=== PATIENT | female | born 1930 | race Caucasian/White ===

== ENCOUNTER 2018-06-13 09:08 | Emergency (ER) | payer MEDICARE ==
--- NOTE | 2018-06-13 10:11 | CT ---
CT BRAIN WITHOUT CONTRAST: Comparison: None. History: Hypertension with central tremors. Found on the ground 40 minutes prior to arrival. Fall wit h head trauma. Technique: Multiple contiguous axial images were obtained in a CT of the brain without contrast. FINDINGS: There are scattered hypodensities in the subcortical and periventricular white matter, likely seconda ry to small vessel ischemic disease. No large confluent infarction is seen. There is no evidence of h ydrocephalus, intracranial hemorrhage, or extraaxial fluid collection. The calvarium and overlying soft tissues are unremarkable. There is opacification of the right fronta l and maxillary sinuses as well as some of the ethmoid air cells. IMPRESSION: 1. No evidence of acute intracranial abnormality. 2. Moderate sinus disease. POS: [facility]
--- NOTE | 2018-06-13 10:28 | RAD ---
AP PELVIS: Indication: Found down on ground with right hip pain. FINDINGS: There is a hip screw and slide plate fixating a healed right hip fracture. There is diffuse osteopeni a. No definite acute fracture is evident. IMPRESSION: No definite acute osseous abnormality. POS: [facility]
--- NOTE | 2018-06-13 10:32 | RAD ---
RIGHT HIP 2 VIEWS: Date: 06/13/18 HISTORY: Patient in assisted living, found down with right hip pain. COMPARISON: None. FINDINGS: There is a hip screw and side plate in place, fixating a healed right hip fracture. 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 There is diffuse osteopenia. No definite acute osseous abno rmality is evident. IMPRESSION: No definite acute osseous abnormality. Diffuse osteopenia. POS: [facility]
[2018-06-13 11:08] LABS: #Basophils 0.1 thou/uL (0.0-0.2); #Eosinphils 0.2 thou/uL (0.0-0.7); #Lymphocytes 1.2 thou/uL (1.20-3.40); #Monocytes 1.1 thou/uL (0.11-0.59); #Neutrophils 10.2 thou/uL (1.40-6.50); %Basophils 0.9 % (0.0-1.0); %Eosinophils 1.6 % (0.0-10.0); %Lymphocytes 9.2 % (21.0-51.0); %Monocytes 8.6 % (0.0-10.0); %Neutrophils 79.6 % (42.0-75.0); Mean Corpuscular HGB CONC 32.6 g/dL (32.0-36.0); Mean Corpuscular Hemoglobin 30.5 pg (27.0-31.0); Mean Corpuscular Volume 93.5 fL (78.0-98.0); Mean Platelet Volume 8.1 fL (7.4-10.4); Platelet Count 198 thou/uL (130-400); RBC Distribution Width 13.7 % (11.5-14.5); White Blood Cell (WBC) Count 12.8 thou/uL (4.8-10.8)
[2018-06-13 11:30] LABS: ALT (SGPT) 37 U/L (8-55); AST (SGOT) 35 U/L (5-34); Albumin 3.4 g/dL (3.4-4.8); Alkaline Phosphatase 59 U/L (40-150); Anion Gap 12 mmol/L (10-20); BUN (Urea Nitrogen) 20 mg/dL (9.8-20.1); Bilirubin, Total 0.5 mg/dL (0.2-1.2); CK (CPK) 62 U/L (29-168); Calc. Creatinine Clearance 0 mL/min (70-130); Calcium 9.2 mg/dL (7.8-10.44); Carbon Dioxide 25 mmol/L (23-31); Chloride 107 mmol/L (98-107); Estimated GFR-MDRD 61; Globulin 2.6 g/dL (2.4-3.5); Glucose 126 mg/dL (83-110); Potassium 4.1 mmol/L (3.5-5.1); Sodium 140 mmol/L (136-145)
== END 2018-06-13 11:44 | disposition home or self-care (01) ==
LOC: ERS 09:08
DX: S70.01XA Contusion of right hip, initial encounter (principal); S00.93XA Contusion of unspecified part of head, initial encounter; I10 Essential (primary) hypertension; E11.9 Type 2 diabetes mellitus without complications; F03.90 Unspecified dementia, unspecified severity, without behavioral disturbance, psychotic disturbance, mood disturbance, and anxiety; Z79.899 Other long term (current) drug therapy; Z79.82 Long term (current) use of aspirin; W19.XXXA Unspecified fall, initial encounter
CPT/HCPCS: 36415; 70450; 72170; 80053; 82550; 85025

== ENCOUNTER 2018-06-14 10:21 | Emergency (ER) | payer MEDICARE ==
--- NOTE | 2018-06-14 11:35 | RAD ---
RIGHT TIBIA AND FIBULA TWO VIEWS: History: Fall yesterday. Tib/fib pain. FINDINGS: The bones are demineralized. There are marked arthritic changes of the knee. There is also arthritic change of the ankle. There are no signs of fracture or dislocation. IMPRESSION: No evidence of fracture. POS: [facility]
--- NOTE | 2018-06-14 11:50 | RAD ---
RIGHT FEMUR 2 VIEWS: Date: 06/14/18 HISTORY: Trauma. COMPARISON: None. FINDINGS: There are severe degenerative changes of the knee. Very large hypertrophic osteophytes are present. Lateral plate and screw fixation with screw placement through the femoral neck has been placed throug h a femoral neck fracture. There is age-indeterminate possibly acute partial avulsion of the greater tuberosity pulled 3.0 mm proximally. IMPRESSION: 1. Likely acute fracture of the greater tuberosity right femur retracted 3.0 mm. 2. Severe tricompartmental degenerative change of the right knee. POS: [facility]
[2018-06-14 12:04] LABS: #Eosinphils 0.4 thou/uL (0.0-0.7); #Lymphocytes 1.4 thou/uL (1.20-3.40); #Monocytes 1.1 thou/uL (0.11-0.59); #Neutrophils 5.5 thou/uL (1.40-6.50); %Basophils 0.4 % (0.0-1.0); %Eosinophils 4.2 % (0.0-10.0); %Lymphocytes 16.9 % (21.0-51.0); %Monocytes 13.5 % (0.0-10.0); Hemoglobin 9.8 g/dL (12.0-16.0); Mean Corpuscular HGB CONC 32.1 g/dL (32.0-36.0); Mean Corpuscular Hemoglobin 30.5 pg (27.0-31.0); Mean Corpuscular Volume 94.9 fL (78.0-98.0); Mean Platelet Volume 8.7 fL (7.4-10.4); Platelet Count 180 thou/uL (130-400); Red Blood Cell (RBC) Count 3.22 mill/uL (4.20-5.40); White Blood Cell (WBC) Count 8.4 thou/uL (4.8-10.8)
[2018-06-14 12:29] LABS: ALT (SGPT) 32 U/L (8-55); AST (SGOT) 29 U/L (5-34); Albumin 3.1 g/dL (3.4-4.8); Alkaline Phosphatase 54 U/L (40-150); Anion Gap 11 mmol/L (10-20); BUN (Urea Nitrogen) 25 mg/dL (9.8-20.1); Bilirubin, Total 0.5 mg/dL (0.2-1.2); CK (CPK) 55 U/L (29-168); Calc. Creatinine Clearance 0 mL/min (70-130); Carbon Dioxide 27 mmol/L (23-31); Chloride 107 mmol/L (98-107); Estimated GFR-MDRD 44; Globulin 2.4 g/dL (2.4-3.5); Glucose 117 mg/dL (83-110); Potassium 4.2 mmol/L (3.5-5.1); Protein, Total 5.5 g/dL (6.0-8.3); Sodium 141 mmol/L (136-145)
[2018-06-14] MEDS ORDERED: HYDROcodone/Acetaminophen 5/325 mg Tablet ONE (13:22)
== END 2018-06-14 13:28 | disposition home or self-care (01) ==
LOC: ERS 10:21
DX: S72.91XA Unspecified fracture of right femur, initial encounter for closed fracture (principal); E11.9 Type 2 diabetes mellitus without complications; E78.5 Hyperlipidemia, unspecified; F03.90 Unspecified dementia, unspecified severity, without behavioral disturbance, psychotic disturbance, mood disturbance, and anxiety; I10 Essential (primary) hypertension; J44.9 Chronic obstructive pulmonary disease, unspecified; Z79.82 Long term (current) use of aspirin; Z79.899 Other long term (current) drug therapy; W19.XXXA Unspecified fall, initial encounter
CPT/HCPCS: 36415; 80053; 82550; 85025